=== PATIENT | male | born 1990 | race African-American/Black ===

== ENCOUNTER 2016-08-02 22:46 | Emergency (ER) | payer SELFPAY ==
[2016-08-02 22:58] VITALS: BP 137/91; PULSE 104; TEMP 97; BMI 28.7
[2016-08-03] MEDS ORDERED: LIDOCAINE HCL 2% JELLY (5 ML/TUBE) ONE (02:30)
--- NOTE | 2016-08-03 02:33 | PDOC ---
[id number] 4d TOOTHACHE Time Seen by Provider: 08/03/16 02:17 History Source: Patient - History of Present Illness Initial Comments: 08/03/16 02:28 26 year old male with left lower 2nd molar pain and swelling. patient reports that his friend attempted to extract the tooth and string got stuck in the gums. patient reports pain and swelling to left side of face. 08/15/16 04:00 Past History - Past Medical History Allergies/Adverse Reactions: Allergies Allergy/AdvReac Type Severity Reaction Status Date / Time No Known Allergies Allergy Verified 08/02/16 22:58 Home Medications: Ambulatory Orders Oxycodone HCl/Acetaminophen [Percocet 5-325 mg Tablet] 1 tab PO Q6H PRN #10 tablet MDD 4 08/03/16 Penicillin V Potassium [Pen Vee K -] 500 mg PO TID #21 tablet 08/03/16 Asthma: Yes - Psycho/Social/Smoking Cessation Hx Suicidal Ideation: No Smoking History: Current some day smoker Number of Cigarettes Smoked Daily: 1 Information on smoking cessation initiated: No Review of Systems - Review of Systems Able to Perform ROS?: Yes Is the patient limited [place] proficient: No Constitutional: Yes: Symptoms Reported. No: See HPI, Chills, Diaphoresis, Fever , Loss of Appetite, Malaise, Night Sweats, Weakness, Weight Stable, Unintentional Wgt. Loss, Unexplained wgt Loss, Other HEENTM: Yes: Dental Problems *Physical Exam - Vital Signs Last Vital Signs Temp Pulse Resp BP Pulse Ox 97 F L 104 H 20 137/91 99 08/02/16 22:55 08/02/16 22:55 08/02/16 22:55 08/02/16 22:55 08/02/16 22:55 - Physical Exam General Appearance: Yes: Appropriately Dressed Neck: positive: Other (2nd left lower molar black string imbedded in gum. gum tender. no abscess noted. ). negative: Lymphadenopathy (R), Lymphadenopathy (L) Medical Decision Making - Medical Decision Making A: dental pain / early abscess? \P: pain control Antibiotics *DC/Admit/Observation/Transfer Diagnosis at time of Disposition: Tooth abscess, Pain, dental - Discharge Dispostion Disposition: HOME - Prescriptions Prescriptions: Penicillin V Potassium [Pen Vee K -] 500 mg PO TID #21 tablet Oxycodone HCl/Acetaminophen [Percocet 5-325 mg Tablet] 1 tab PO Q6H PRN #10 tablet MDD 4 PRN Reason: Pain - Patient Instructions Printed Discharge Instructions: DI for Tooth Abscess Additional Instructions: take penicillin as prescribed. take percocet for severe pain. follow up with dentist as soon as possible.
--- NOTE | 2016-08-03 02:41 | PDOC ---
*Physical Exam - Vital Signs Last Vital Signs Temp Pulse Resp BP Pulse Ox 97 F L 104 H 20 137/91 99 08/02/16 22:55 08/02/16 22:55 08/02/16 22:55 08/02/16 22:55 08/02/16 22:55 Medical Decision Making - Medical Decision Making 08/03/16 02:40 agree with care from KILLIAN Curtis *DC/Admit/Observation/Transfer Diagnosis at time of Disposition: Tooth abscess - Discharge Dispostion Disposition: HOME - Prescriptions Prescriptions: Penicillin V Potassium [Pen Vee K -] 500 mg PO TID #21 tablet Oxycodone HCl/Acetaminophen [Percocet 5-325 mg Tablet] 1 tab PO Q6H PRN #10 tablet MDD 4 PRN Reason: Pain - Referrals - Patient Instructions Printed Discharge Instructions: DI for Tooth Abscess Additional Instructions: take penicillin as prescribed. take percocet for severe pain. follow up with dentist as soon as possible. - Post Discharge Activity
[2016-08-03] MEDS ORDERED: PENICILLIN V POTASSIUM 500 MG TABLET PO ONE (02:46)
[2016-08-03] MEDS ORDERED: IBUPROFEN 600 MG TABLET (FP) PO ONE (02:54)
[2016-08-03] MEDS ORDERED: OXYCODONE/APAP 5/325MG COMBO TABLET ONE (02:54)
[2016-08-03] MEDS: OXYCODONE/APAP 5/325MG COMBO TABLET PO ONE (03:03)
[2016-08-03] MEDS: IBUPROFEN 600 MG TABLET (FP) PO ONE (03:03)
== END 2016-08-03 03:01 | disposition home or self-care (01) ==
LOC: JER 22:46
DX: K04.7 Periapical abscess without sinus (principal); F17.210 Nicotine dependence, cigarettes, uncomplicated
CPT/HCPCS: 99282-25